=== PATIENT | female | born 1935 | race Caucasian/White ===

== ENCOUNTER 2016-12-11 00:42 | Emergency (ER) | payer MEDICARE, OTHER ==
[~2016-12-11] VITALS: Ht 160 cm; Wt 122.5 kg
[~2016-12-11 00:42] MED LIST: ACET325T9 PO; AMLO10TA2 PO; ASPI81TA2 PO; BISA10SU55 RC; CARV25TA PO; DICL100G7 TP; DOCU100C5 PO; DULO60CA6 PO; ERGO500012 PO; GABA-585 PO; HYDR-2762 PO; HYDR12.58 PO; LISI-334 PO; MELA1TAB13 PO; MELA3TAB PO; OMEG1CAP6 PO; ONDA4TAB7 PO; PANT40TA5 PO; POLY17PO5 PO; POTA10CA PO; SIMV5TAB5 PO
[2016-12-11 01:35] LABS: BILIRUBIN,URINE NEGATIVE (NEG); GLUCOSE,URINE NEGATIVE (NEG); NITRITE,URINE NEGATIVE (NEG); PH,URINE 7.5; PROTEIN,URINE NEGATIVE (NEG-TRACE)
[2016-12-11 01:39] LABS: BACTERIA,URINE MANY /HPF (0-FEW); RBC,URINE 0 /HPF (0-2); SQUAMOUS EPITHELIAL CELL,UR FEW /LPF
[2016-12-11 01:48] LABS: BASO % 1 % (0-3); EOS % 1 % (0-3); HEMOGLOBIN 10.7 g/dL (12.0-15.5); LYMPH # 1.3 x10^3/uL (1.0-4.8); LYMPH % 14 % (24-48); MEAN CORPUSCULAR HEMOGLOBIN 31 pg (25-35); MEAN CORPUSCULAR HGB CONC 33 g/dL (31-37); MEAN CORPUSCULAR VOLUME 96 fL (79-100); MONO % 6 % (0-9); NEUT % 78 % (31-73); PLATELET COUNT 180 x10^3/uL (140-400); RED BLOOD COUNT 3.45 x10^6/uL (3.50-5.40); RED CELL DISTRIBUTION WIDTH 13.2 % (11.5-14.5); WHITE BLOOD COUNT 9.3 x10^3/uL (4.0-11.0)
[2016-12-11 01:58] LABS: GFR 53.5
[2016-12-11 02:04] LABS: DIRECT BILIRUBIN 0.1 mg/dL (0.0-0.2); TOTAL BILIRUBIN 0.3 mg/dL (0.2-1.0); TOTAL PROTEIN 7.5 g/dL (6.4-8.2)
--- NOTE | 2016-12-11 02:59 | RAD ---
INDICATION: Head and neck trauma after a fall. COMPARISON: None TECHNIQUE: Axial, noncontrast CT images obtained through the head and cervical spine. Coronal and sagittal reformats are provided of the cervical spine. One or more of the following individualized dose reduction techniques were utilized for this examination: 1. Automated exposure control; 2. Adjustment of the mA and/or kV according to patient size; 3. Use of iterative reconstruction technique. FINDINGS: No acute intracranial process is identified, specifically no acute blood products, midline shift, mass effect or extra-axial fluid collections. Ventricles and sulci appear appropriate for patient's age. Basilar cisterns are maintained. Diffuse low attenuation is present within the periventricular and subcortical white matter. Intracranial vascular calcifications are present. The visualized paranasal sinuses are clear. Mastoid air cells are clear. No calvarial fracture is present. Scalp hematoma demonstrated at the vertex. There is linear lucency demonstrated within the anterior inferior aspect of the body of C2, best visualized on the coronal and sagittal images, consistent with an acute, traumatic, nondisplaced fracture. No significant involvement of the transverse processes is seen. Remainder of the cervical spine appears intact. The C1-C2 articulation is maintained. Normal cervical lordosis and alignment is maintained. The posterior elements are intact. Visualized soft tissues of the neck demonstrate no acute finding. Visualized lung apices are clear. Left thyroid hypodensity is present. IMPRESSION: 1. Vertex scalp hematoma without an underlying acute intracranial process. Diffuse periventricular and subcortical white matter low attenuation is nonspecific although suggestive of chronic microvascular ischemic changes. 2. Acute, nondisplaced fracture involving the inferior body of C2. This was discussed with Dr. Jose in the ER at 02:56 on 12/11/2016. Electronically signed by: Jayna Miner (Dec 11, 2016 02:58:11)
[2016-12-11] MEDS ORDERED: HYDROCODONE/APAP 5/325MG TABLET. PO ONE (03:00)
[2016-12-11] MEDS ORDERED: HYDR-2666 PO (03:14)
--- NOTE | 2016-12-11 03:15 | PHYS DOC ---
Past Medical History Past Medical History: Arthritis, Dementia, Depression, High Cholesterol, Hypertension Additional Past Medical Histor: DVT LEFT LEG Past Surgical History: No Surgical History Additional Past Surgical Histo: unknown Alcohol Use: None Drug Use: None Adult General Chief Complaint Chief Complaint: MECHANICAL FALL HPI HPI 81-year-old female presenting to the emergency Department today after falling at a local longterm. There are reports of head trauma. Patient has a small amount swelling just above left eyebrow. She reports no lost consciousness. She denies neck pain chest pain abdominal pain. She does have back pain along the thoracic paraspinal musculature. Her pain as sharp nonradiating mild to moderate and without alleviating factors. Review of Systems Review of Systems Review of Systems is negative for chest pain abdominal pain fevers chills. She denies injury to her extremities. All other systems is negative except noted in HPI. Current Medications Current Medications Current Medications Medications (Trade) Dose Ordered Sig/Rubén Start Time Stop Time Status Last Admin Dose Admin Acetaminophen/ Hydrocodone Bitart (Lortab 5/325) 2 tab 1X ONCE 12/11/16 03:00 12/11/16 03:01 DC 12/11/16 02:40 2 TAB Allergies Allergies Allergies Coded Allergies Type Severity Reaction Last Updated Verified cortisone Allergy Intermediate 12/26/15 No warfarin Allergy Intermediate 12/26/15 No I S O L A T I O N *CONTACT* Allergy Unknown 12/26/15 Yes Physical Exam Physical Exam Constitutional: Well developed, well nourished, no acute distress, non-toxic appearance. [] HENT: Normocephalic, small swelling just above left eye. Otherwise no lacerations present., bilateral external ears normal, oropharynx moist, no oral exudates, nose normal. [] Eyes: PERRLA, EOMI, conjunctiva normal, no discharge. [] Neck: Normal range of motion, no tenderness, supple, no stridor. [] Cardiovascular:Heart rate regular rhythm, no murmur [] Lungs & Thorax: Bilateral breath sounds clear to auscultation [] Abdomen: Bowel sounds normal, soft, no tenderness, no masses, no pulsatile masses. [] Skin: Warm, dry, no erythema, no rash. [] Back: No tenderness, no CVA tenderness. cervical lumbar and thoracic spinal examination shows no abrasions lacerations or ecchymosis. Step off present. No tenderness in the midline. There is mild pain along the paraspinal musculature. Extremities: No tenderness, no cyanosis, no clubbing, ROM intact, no edema. [] Neurologic: Alert and oriented X 3, normal motor function, normal sensory function, no focal deficits noted. [] Psychologic: Affect normal, judgement normal, mood normal. [] Current Patient Data Vital Signs Vital Signs Date Time Temp Pulse Resp B/P Pulse Ox O2 Delivery O2 Flow Rate FiO2 12/11/16 03:29 68 20 141/63 96 Nasal Cannula 2 12/11/16 01:10 98.6 98.6 Lab Values Laboratory Tests Test 12/11/16 01:29 12/11/16 01:40 Urine Collection Type Unknown Urine Color Yellow Urine Clarity Clear Urine pH 7.5 Urine Specific [place] 1.015 Urine Protein Negativemg/dL (NEG-TRACE) Urine Glucose (UA) Negativemg/dL (NEG) Urine Ketones (Stick) Negativemg/dL (NEG) Urine Blood Negative (NEG) Urine Nitrite Negative (NEG) Urine Bilirubin Negative (NEG) Urine Urobilinogen Dipstick 1.0mg/dL (0.2 mg/dL) Urine Leukocyte Esterase Moderate (NEG) Urine RBC 0/HPF (0-2) Urine WBC 5-10/HPF (0-4) Urine Squamous Epithelial Cells Few/LPF Urine Bacteria Many/HPF (0-FEW) Urine Mucus Slight/LPF White Blood Count 9.3x10^3/uL (4.0-11.0) Red Blood Count 3.45x10^6/uL (3.50-5.40) L Hemoglobin 10.7g/dL (12.0-15.5) L Hematocrit 33.0% (36.0-47.0) L Mean Corpuscular Volume 96fL (79-100) Mean Corpuscular Hemoglobin 31pg (25-35) Mean Corpuscular Hemoglobin Concent 33g/dL (31-37) Red Cell Distribution Width 13.2% (11.5-14.5) Platelet Count 180x10^3/uL (140-400) Neutrophils (%) (Auto) 78% (31-73) H Lymphocytes (%) (Auto) 14% (24-48) L Monocytes (%) (Auto) 6% (0-9) Eosinophils (%) (Auto) 1% (0-3) Basophils (%) (Auto) 1% (0-3) Neutrophils # (Auto) 7.3x10^3uL (1.8-7.7) Lymphocytes # (Auto) 1.3x10^3/uL (1.0-4.8) Monocytes # (Auto) 0.6x10^3/uL (0.0-1.1) Eosinophils # (Auto) 0.1x10^3/uL (0.0-0.7) Basophils # (Auto) 0.0x10^3/uL (0.0-0.2) Sodium Level 143mmol/L (136-145) Potassium Level 4.0mmol/L (3.5-5.1) Chloride Level 105mmol/L (98-107) Carbon Dioxide Level 33mmol/L (21-32) H Anion Gap 5 (6-14) L Blood Urea Nitrogen 20mg/dL (7-20) Creatinine 1.0mg/dL (0.6-1.0) Estimated GFR (Cockcroft-Gault) 53.5 Glucose Level 138mg/dL (70-99) H Lactic Acid Level 1.0mmol/L (0.4-2.0) Calcium Level 9.0mg/dL (8.5-10.1) Total Bilirubin 0.3mg/dL (0.2-1.0) Direct Bilirubin 0.1mg/dL (0.0-0.2) Aspartate Amino Transferase (AST) 13U/L (15-37) L Alanine Aminotransferase (ALT) 15U/L (14-59) Alkaline Phosphatase 107U/L (46-116) Troponin I Quantitative < 0.017ng/mL (0.000-0.055) XR-Unh-V-Type Natriuretic Peptide 496pg/mL (0-449) H Total Protein 7.5g/dL (6.4-8.2) Albumin 3.0g/dL (3.4-5.0) L Lipase 235U/L (73-393) Laboratory Tests 12/11/16 01:40 Laboratory Tests 12/11/16 01:40 EKG EKG [] Radiology/Procedures Radiology/Procedures [] Course & Med Decision Making Course & Med Decision Making Pertinent Labs and Imaging studies reviewed. (See chart for details) []81-year-old female presenting to the emergency Department today after fall with head trauma. Vital signs were unremarkable. Physical exam showed a mild swelling of the left eyebrow. head neck CT were remarkable for a nondisplaced cervical spine fracture at C2. I discussed the case with our spinal surgeon Dr. Mosley recommended [place] collar with outpatient follow-up in seven days. The patient was in placed in [place] collar and discharged back to her nursing facility for follow-up with spinal surgery in seven days. Dragon Disclaimer Dragon Disclaimer This electronic medical record was generated, in whole or in part, using a voice recognition dictation system. Departure Departure Impression: Primary Impression: Fracture of C2 vertebra, closed Disposition: 01 HOME, SELF-CARE Condition: STABLE Referrals: EMILIA ROBLES (PCP) Patient Instructions: Cervical Spine Fracture, Stable Additional Instructions: Thank you for allowing us to participate in your care today. Followup with Dr. Whitehead in 7 days. If you do not have a primary care provider you can ask for a list of our primary care providers. Return to the emergency department you have any new or concerning findings. This should be evaluated by the primary care physician and any necessary consulting services for continued management within a few days after discharge. Return to emergency room if you have any new or concerning symptoms including but not limited to fever, chills, nausea, vomiting, intractable pain, any new rashes, chest pain, shortness of air, uncontrolled bleeding, difficulty breathing, and/or vision loss. You may have been prescribed medication that can change in your level of thinking and ability to operate machinery. These medications include hydrocodone and Ativan. Also, Benadryl has been known to do this as well. Be sure to check with your pharmacist and ask if the medications you've prescribed can affect your level of consciousness. I recommend not operating heavy machinery or driving while on medication such as these. Scripts Hydrocodone Bit/Acetaminophen (Hydrocodone-Apap 5-325 )1 Each Tablet1 Tab PO PRN Q6HRS PRN PAIN #15 TAB Be careful as this medication may cause you to be drowsy or tired. Do not drive on this medication. Prov:LYUBOV BLUNT MD 12/11/16 LYUBOV BLUNT MD Dec 11, 2016 03:15
[2016-12-11 03:29] VITALS: BP 141/63
--- NOTE | 2016-12-11 06:14 | EKG ---
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
--- NOTE | 2016-12-11 08:07 | RAD ---
EXAM: Chest, single view. HISTORY: Fatigue. COMPARISON: 12/22/2015. FINDINGS: A frontal view of the chest is obtained. There is slight increased diffuse interstitial opacity suggesting mild congestion. There is no consolidation, effusion or pneumothorax. The heart is normal in size for portable technique. IMPRESSION: Slight interval increase in diffuse interstitial opacity suggesting congestion.
== END 2016-12-11 03:57 | disposition home or self-care (01) ==
LOC: ER 00:42
DX: S12.101A Unspecified nondisplaced fracture of second cervical vertebra, initial encounter for closed fracture (principal); M19.90 Unspecified osteoarthritis, unspecified site; E78.00 Pure hypercholesterolemia, unspecified; I10 Essential (primary) hypertension; Z88.8 Allergy status to other drugs, medicaments and biological substances; Z91.041 Radiographic dye allergy status; W19.XXXA Unspecified fall, initial encounter; Y93.89 Activity, other specified; Y92.89 Other specified places as the place of occurrence of the external cause; Y99.8 Other external cause status
CPT/HCPCS: 36415; 51701; 70450; 71010; 72125; 80048; 80076; 81001; 83605; 83690; 83880; 84484; 85027; 87086; 93005; 99285-25

== ENCOUNTER → 2016-12-13 | Outpatient (CLI) | payer MEDICARE, OTHER ==
[2016-12-11 03:29] VITALS: BP 141/63
[~2016-12-13] MED LIST changes: +HYDR-2666 PO
--- NOTE | 2016-12-13 10:16 | RAD ---
EXAM: Cervical spine, 4 views. HISTORY: C2 fracture. COMPARISON: CT dated 12/11/2016. FINDINGS: Frontal, lateral and swimmer's views of the cervical spine are obtained. There is straightening of cervical lordosis and minimal anterolisthesis at the upper cervical levels. There is facet arthropathy at all levels. The recently demonstrated nondisplaced fracture of the anterior inferior aspect of C2 is unchanged. There is an ectatic atherosclerotic aortic arch. IMPRESSION: 1. Nondisplaced fracture of the anterior-inferior aspect of C2, not significantly changed compared to the recent CT when allowing for differences in imaging modality. 2. Multilevel degenerative change throughout the cervical spine.
== END | disposition home or self-care (01) ==
LOC: RAD 09:13
PROVIDERS: ATTEND Family Medicine
DX: S12.100A Unspecified displaced fracture of second cervical vertebra, initial encounter for closed fracture (principal)
CPT/HCPCS: 72040

== ENCOUNTER → 2017-01-17 | Outpatient (CLI) | payer MEDICARE, OTHER ==
--- NOTE | 2017-01-17 16:39 | RAD ---
INDICATION: CERVICAL FRACTURE. COMPARISON: 12/11/2016 IMPRESSION: 6 views of the cervical spine are obtained. There is a mildly displaced fracture at the anterior inferior aspect of the C2 vertebral body with angulation of the fracture. This appears more displaced compared to prior examination. Degenerative changes are seen throughout the cervical spine with osteophyte formation at the disc spaces as well as uncovertebral and facet hypertrophy. Severe calcific atherosclerosis of partially visualized thoracic aorta. Report called to the ordering clinicians office at 4:34 PM on date of exam.
== END | disposition home or self-care (01) ==
LOC: RAD 15:39
PROVIDERS: ATTEND Neurological Surgery
DX: S12.100A Unspecified displaced fracture of second cervical vertebra, initial encounter for closed fracture (principal); M25.78 Osteophyte, vertebrae; X58.XXXA Exposure to other specified factors, initial encounter; Y99.8 Other external cause status; Y92.89 Other specified places as the place of occurrence of the external cause; Y93.89 Activity, other specified
CPT/HCPCS: 72040

== ENCOUNTER 2017-08-29 14:36 | Inpatient (IN) | payer MEDICARE, OTHER ==
[~2017-08-29] VITALS: Ht 165.1 cm; Wt 88.0 kg
[~2017-08-29 14:36] MED LIST changes: +AMLO2.5T PO; +ASPI-630 PO; -ASPI81TA2 PO; +CARV6.25 PO; +CETI10TA22 PO; +DICL100G18 TP; -DICL100G7 TP; +DOCU100C28 PO; -DOCU100C5 PO; -ERGO500012 PO; +ERGO500027 PO; +FENT1PAT13 TP; +FURO-68 PO; +GLYC1SUP RC; -HYDR-2666 PO; +HYDR-2758 PO; +LEVO75TA5 PO; +LISI-338 PO; +MELA10TA2 PO; -MELA3TAB PO; +MELA3TAB2 PO; +MICO130A9 TP; +NA P133E2 RC; +NYST15CR TP; +OMEP20TA8 PO; +POLY17PO29 PO; -POLY17PO5 PO; -POTA10CA PO; +POTASSIUM CHLO10 MEQ PO
--- NOTE | 2017-08-29 14:52 | EKG ---
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
--- NOTE | 2017-08-29 15:22 | RAD ---
EXAM: Chest one view. HISTORY: Chest pain. COMPARISON: Studies dating back through 11/23/2015. FINDINGS: A frontal view of the chest is obtained. The inspiration is small with mild basilar atelectasis. An opacity along the right superior sternal border appears to been stable chronically and likely reflects tortuous vasculature. There are atherosclerotic calcifications of the aorta. There is no pneumothorax or pleural effusion. The heart is mildly enlarged. The aorta is calcified and tortuous. 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 IMPRESSION: 1. Mild cardiomegaly. 2. Enlargement of the right peritracheal stripe most likely represents tortuous vasculature and has been present chronically.
--- NOTE | 2017-08-29 15:25 | PHYS DOC ---
Past Medical History Past Medical History: Arthritis, Dementia, Depression, High Cholesterol, Hypertension Additional Past Medical Histor: DVT LEFT LEG Past Surgical History: No Surgical History Additional Past Surgical Histo: unknown Alcohol Use: None Drug Use: None Adult General Chief Complaint Chief Complaint: CHEST PAIN HPI HPI Patient is a 81 year old female who presents with substernal chest pain. She states it started prior to arrival. He states it was a sharp pain at substernal didn't radiate she denies any nausea or vomiting. She does have a history of a stress test recently that shows some signs of questionable ischemia. Review of Systems Review of Systems Constitutional: Denies fever or chills [] Eyes: Denies change in visual acuity, redness, or eye pain [] HENT: Denies nasal congestion or sore throat [] Respiratory: Denies cough or shortness of breath [] Cardiovascular: No additional information not addressed in HPI [] GI: Denies abdominal pain, nausea, vomiting, bloody stools or diarrhea [] : Denies dysuria or hematuria [] Musculoskeletal: Denies back pain or joint pain [] Integument: Denies rash or skin lesions [] Neurologic: Denies headache, focal weakness or sensory changes [] Endocrine: Denies polyuria or polydipsia [] Current Medications Current Medications Current Medications Medications (Trade) Dose Ordered Sig/Rubén Start Time Stop Time Status Last Admin Dose Admin Aspirin (Ruth Aspirin) 325 mg 1X ONCE 08/29/17 17:30 08/29/17 17:31 Allergies Allergies Allergies Coded Allergies Type Severity Reaction Last Updated Verified cortisone Allergy Intermediate 12/26/15 No warfarin Allergy Intermediate 12/26/15 No I S O L A T I O N *CONTACT* Allergy Unknown 12/26/15 Yes Physical Exam Physical Exam Constitutional: Well developed, well nourished, no acute distress, non-toxic appearance. [] HENT: Normocephalic, atraumatic, bilateral external ears normal, oropharynx moist, no oral exudates, nose normal. [] Eyes: PERRLA, EOMI, conjunctiva normal, no discharge. [] Neck: Normal range of motion, no tenderness, supple, no stridor. [] Cardiovascular:Heart rate regular rhythm, no murmur [] Lungs & Thorax: Bilateral breath sounds clear to auscultation [] Abdomen: Bowel sounds normal, soft, no tenderness, no masses, no pulsatile masses. [] Skin: Warm, dry, no erythema, no rash. [] Back: No tenderness, no CVA tenderness. [] Extremities: No tenderness, no cyanosis, no clubbing, ROM intact, no edema. [] Neurologic: Alert and oriented X 3, normal motor function, normal sensory function, no focal deficits noted. [] Psychologic: Affect normal, judgement normal, mood normal. [] Current Patient Data Vital Signs Vital Signs Date Time Temp Pulse Resp B/P (MAP) Pulse Ox O2 Delivery O2 Flow Rate FiO2 08/29/17 14:36 98.7 74 16 111/61 (78) 99 Nasal Cannula 3.0 98.7 Lab Values Laboratory Tests Test 08/29/17 15:50 White Blood Count 9.2 x10^3/uL (4.0-11.0) Red Blood Count 3.69 x10^6/uL (3.50-5.40) Hemoglobin 11.5 g/dL (12.0-15.5) L Hematocrit 35.4 % (36.0-47.0) L Mean Corpuscular Volume 96 fL (79-100) Mean Corpuscular Hemoglobin 31 pg (25-35) Mean Corpuscular Hemoglobin Concent 33 g/dL (31-37) Red Cell Distribution Width 14.6 % (11.5-14.5) H Platelet Count 204 x10^3/uL (140-400) Neutrophils (%) (Auto) 65 % (31-73) Lymphocytes (%) (Auto) 25 % (24-48) Monocytes (%) (Auto) 7 % (0-9) Eosinophils (%) (Auto) 2 % (0-3) Basophils (%) (Auto) 1 % (0-3) Neutrophils # (Auto) 6.0 x10^3uL (1.8-7.7) Lymphocytes # (Auto) 2.3 x10^3/uL (1.0-4.8) Monocytes # (Auto) 0.7 x10^3/uL (0.0-1.1) Eosinophils # (Auto) 0.2 x10^3/uL (0.0-0.7) Basophils # (Auto) 0.1 x10^3/uL (0.0-0.2) Prothrombin Time 13.4 SEC (11.7-14.0) Prothrombin Time INR 1.1 (0.8-1.1) Sodium Level 141 mmol/L (136-145) Potassium Level 4.6 mmol/L (3.5-5.1) Chloride Level 103 mmol/L (98-107) Carbon Dioxide Level 34 mmol/L (21-32) H Anion Gap 4 (6-14) L Blood Urea Nitrogen 14 mg/dL (7-20) Creatinine 0.9 mg/dL (0.6-1.0) Estimated GFR (Cockcroft-Gault) 60.4 Glucose Level 103 mg/dL (70-99) H Calcium Level 8.8 mg/dL (8.5-10.1) Magnesium Level 2.2 mg/dL (1.8-2.4) Total Bilirubin 0.3 mg/dL (0.2-1.0) Direct Bilirubin 0.1 mg/dL (0.0-0.2) Aspartate Amino Transferase (AST) 13 U/L (15-37) L Alanine Aminotransferase (ALT) 15 U/L (14-59) Alkaline Phosphatase 114 U/L (46-116) Creatine Kinase 70 U/L (26-192) Creatine Kinase MB (Mass) 0.7 ng/mL (0.0-3.6) Creatine Kinase MB Relative Index 1.0 % (0-4) Troponin I Quantitative < 0.017 ng/mL (0.000-0.055) PK-Kxf-N-Type Natriuretic Peptide 953 pg/mL (0-449) H Total Protein 6.9 g/dL (6.4-8.2) Albumin 3.1 g/dL (3.4-5.0) L Lipase 238 U/L (73-393) Laboratory Tests 08/29/17 15:50 Laboratory Tests 08/29/17 15:50 EKG EKG EKG shows heart rate sinus [address] elevations, T-wave inversions noted in lead 3, left axis deviation noted, QTC 457 ms, as interpreted by me. EKG is unchanged from one performed July 31, 2017 Radiology/Procedures Radiology/Procedures [facility] [address] [place], [place] [id number] IMAGING REPORT Signed PATIENT: NELIDA CARRILLO ACCOUNT: [id number] : 1935 LOCATION: ER AGE: 81 SEX: F EXAM STATUS: PRE ER ORD. PHYSICIAN: LEANNA SILVA MD REASON: chest pain PROCEDURE: PORTABLE CHEST 1V EXAM: Chest one view. HISTORY: Chest pain. COMPARISON: Studies dating back through 11/23/2015. FINDINGS: A frontal view of the chest is obtained. The inspiration is small with mild basilar atelectasis. An opacity along the right superior sternal border appears to been stable chronically and likely reflects tortuous vasculature. There are atherosclerotic calcifications of the aorta. There is no pneumothorax or pleural effusion. The heart is mildly enlarged. The aorta is calcified and tortuous. 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 IMPRESSION: 1. Mild cardiomegaly. 2. Enlargement of the right peritracheal stripe most likely represents tortuous vasculature and has been present chronically. DICTATED and SIGNED BY: SHIRLENE MAGALLON MD DATE: 08/29/17 1516 CC: EMILIA ROBLES; LEANNA SILVA MD ~ Impressions: Chest pain Dementia Depression dyslipidemia Hypertension Course & Med Decision Making Course & Med Decision Making Pertinent Labs and Imaging studies reviewed. (See chart for details) His EKG isn't changed from previous. Labs also nonacute. Patient received 325 aspirin is being admitted to Dr. Jaramillo, who once a cardiology consultation. She did have a recent stress test that showed she had transient ischemic dilation, balance ischemia and they would like to do a catheter once she results from her orbital trauma she had recently. Dragon Disclaimer Dragon Disclaimer This electronic medical record was generated, in whole or in part, using a voice recognition dictation system. Departure Departure Impression: Primary Impression: Chest pain Disposition: ADMITTED INPATIENT Admitting Physician: Kyle Jaramillo Condition: STABLE Referrals: EMILIA ROBLES (PCP) Problem Qualifiers Primary Impression: Chest pain Chest pain type: unspecified Qualified Codes: R07.9 - Chest pain, unspecified LEANNA SILVA MD Aug 29, 2017 15:25
[2017-08-29 15:56] LABS: BASO # 0.1 x10^3/uL (0.0-0.2); BASO % 1 % (0-3); EOS % 2 % (0-3); HEMATOCRIT 35.4 % (36.0-47.0); HEMOGLOBIN 11.5 g/dL (12.0-15.5); LYMPH # 2.3 x10^3/uL (1.0-4.8); LYMPH % 25 % (24-48); MEAN CORPUSCULAR HEMOGLOBIN 31 pg (25-35); MEAN CORPUSCULAR HGB CONC 33 g/dL (31-37); MEAN CORPUSCULAR VOLUME 96 fL (79-100); MONO % 7 % (0-9); NEUT % 65 % (31-73); PLATELET COUNT 204 x10^3/uL (140-400); RED BLOOD COUNT 3.69 x10^6/uL (3.50-5.40); RED CELL DISTRIBUTION WIDTH 14.6 % (11.5-14.5); WHITE BLOOD COUNT 9.2 x10^3/uL (4.0-11.0)
[2017-08-29 16:07] LABS: INR 1.1 (0.8-1.1); PROTHROMBIN TIME PATIENT 13.4 SEC (11.7-14.0)
[2017-08-29 16:14] LABS: CALCIUM 8.8 mg/dL (8.5-10.1); CREATININE 0.9 mg/dL (0.6-1.0); GFR 60.4; POTASSIUM 4.6 mmol/L (3.5-5.1)
[2017-08-29 16:23] LABS: ALBUMIN 3.1 g/dL (3.4-5.0); DIRECT BILIRUBIN 0.1 mg/dL (0.0-0.2); MAGNESIUM 2.2 mg/dL (1.8-2.4); TOTAL BILIRUBIN 0.3 mg/dL (0.2-1.0); TOTAL PROTEIN 6.9 g/dL (6.4-8.2)
[2017-08-29 16:34] LABS: CKMB MASS 0.7 ng/mL (0.0-3.6)
[2017-08-29 17:25] LABS: BILIRUBIN,URINE NEGATIVE (NEG); GLUCOSE,URINE NEGATIVE (NEG); NITRITE,URINE NEGATIVE (NEG); PROTEIN,URINE NEGATIVE (NEG-TRACE)
[2017-08-29] MEDS ORDERED: ONDANSETRON PF 4 MG/2 ML VIAL. IV PRN (17:30)
[2017-08-29] MEDS ORDERED: ASPIRIN 325 MG TABLET PO ONE (17:30)
[2017-08-29 17:31] LABS: BARBITURATES NEG (NEG); BENZODIAZEPINES NEG (NEG); CANNABINOIDS NEG (NEG); COCAINE NEG (NEG); METHADONE NEG (NEG); OPIATES NEG (NEG); PHENCYCLIDINE NEG (NEG)
[2017-08-29 17:35] LABS: NEG OBC FOB NEG; POS OBC FOB POS
[2017-08-29 17:40] LABS: BACTERIA,URINE MANY /HPF (0-FEW); RBC,URINE 0 /HPF (0-2)
[2017-08-29 23:05] VITALS: BP 119/54
[2017-08-29] MEDS ORDERED: FERR-26 PO (23:43)
[2017-08-29] MEDS ORDERED: MAGN400O7 PO (23:43)
[2017-08-29] MEDS ORDERED: ERGO500027 PO (23:43)
[2017-08-29] MEDS ORDERED: PANT40TA5 PO (23:43)
[2017-08-30] VITALS (7 sets, daily range): BP systolic 91–139; BP diastolic 35–65
[2017-08-30] MEDS ORDERED: INFLUENZA VAX SCREEN BY RX. MC ONE (00:45)
[2017-08-30] MEDS ORDERED: PNEUMOCOCCAL VAX SCREEN BY RX. MC ONE (00:45)
[2017-08-30 05:46] LABS: BASO # 0.1 x10^3/uL (0.0-0.2); BASO % 1 % (0-3); EOS % 2 % (0-3); HEMATOCRIT 32.7 % (36.0-47.0); LYMPH # 2.7 x10^3/uL (1.0-4.8); LYMPH % 34 % (24-48); MEAN CORPUSCULAR HEMOGLOBIN 32 pg (25-35); MEAN CORPUSCULAR HGB CONC 34 g/dL (31-37); MEAN CORPUSCULAR VOLUME 94 fL (79-100); MONO % 7 % (0-9); NEUT % 56 % (31-73); PLATELET COUNT 190 x10^3/uL (140-400); RED BLOOD COUNT 3.49 x10^6/uL (3.50-5.40); RED CELL DISTRIBUTION WIDTH 14.3 % (11.5-14.5); WHITE BLOOD COUNT 7.9 x10^3/uL (4.0-11.0)
[2017-08-30 06:06] LABS: CALCIUM 8.8 mg/dL (8.5-10.1); CREATININE 0.9 mg/dL (0.6-1.0); GFR 60.4; POTASSIUM 3.9 mmol/L (3.5-5.1)
[2017-08-30] MEDS ORDERED: FLU VACC QS2017-18 (36MOS+)/PF 0.5 ML SYRINGE. VAX IM ONE (09:00)
--- NOTE | 2017-08-30 09:12 | CONS ---
DATE OF CONSULTATION: 08/30/2017 REASON FOR CONSULTATION: Chest discomfort. HISTORY OF PRESENT ILLNESS: The patient is a demented 81-year-old woman who has a past medical history consistent with diastolic heart failure and hypertension who presented to the ER with chest discomfort. She is a very poor historian who resides in a correction and apparently had some chest discomfort yesterday, which prompted a referral to the ER. In the Emergency Department, she did not have any significant acute pathology on laboratory testing, but was admitted due to a previously performed stress test, which was notable for possible transient ischemic dilatation. Of note, the patient was admitted approximately 1 month ago in the setting of a fall and was noted to have an elevated troponin and she underwent a myocardial perfusion imaging study, which revealed normal perfusion, but was noted to have transient ischemic dilatation suggestive of bowel ischemia and therefore at that time, we had discussed possible cardiac catheterization, but because of her fall and hemorrhage to her right eye, this was deferred as the patient was not having any chest pain in which we elected to treat her medically. Unfortunately, she returned to the hospital prior to seeing us in follow up in clinic and has been admitted again. At this present time, the patient denies any chest pain, but at the correction, she is mostly bed bound and is not active. PAST MEDICAL HISTORY: 1. Hypertension. 2. Dyslipidemia. 3. CVA. 4. Dementia with delusions. 5. Prior history of left lower extremity DVT. 6. Non-ST elevation myocardial infarction in the setting of a fall recently. 7. Chronic renal insufficiency, stage II. SURGICAL HISTORY: Tonsillectomy. FAMILY HISTORY: Noncontributory. SOCIAL HISTORY: No alcohol, tobacco or illicit drug use. She lives in a correction. CURRENT CARDIOVASCULAR MEDICATIONS: None as an in-patient. HOME MEDICATIONS: Include amlodipine, aspirin, carvedilol, lisinopril and simvastatin. REVIEW OF SYSTEMS: Unobtainable due to patient's dementia. ALLERGIES: CORTISONE AND WARFARIN. PHYSICAL EXAMINATION: VITAL SIGNS: Afebrile, 79, 17, 122/53, 99% on 3 liters nasal cannula. GENERAL: She is alert to self, but not oriented to time or place. HEAD AND NECK: Unremarkable. HEART: Regular rate and rhythm without any murmurs, rubs or gallops. LUNGS: Clear to auscultation with decreased breath sounds at the bases. ABDOMEN: Soft and nontender without any significant masses felt. EXTREMITIES: No clubbing, cyanosis or edema. MUSCULOSKELETAL: No obvious trauma, but poor strength bilaterally that is symmetric. DIAGNOSTIC STUDIES: INR 1.1, creatinine 0.9, cardiac enzymes negative x 3, hemoglobin 11.0 and stable, platelets 190. Chest x-ray is unremarkable except for mild cardiomegaly. Nuclear perfusion study performed 4 weeks ago reveals a normal perfusion with transient ischemic dilatation and preserved ejection fraction. IMPRESSION: 1. Abnormal stress test with admission of recurrent chest pain in the setting of previous non-ST elevation myocardial infarction. 2. Hypertension. 3. Dyslipidemia. 4. Chronic diastolic heart failure. 5. Dementia. RECOMMENDATIONS: We will confirm with the patient's family her wishes to pursue aggressive testing and if confirmed, we will then perform a cardiac catheterization to rule out any cardiac issues as a source of her chest pain. If the family wishes her to be treated more conservatively, then we could start the patient on low dose long-acting nitrate therapy and reevaluate her on outpatient basis. Thank you for this consultation. COLLIN UNGER MD DR: AALIYAH/izabel JOB#: [id number] / [id number]
[2017-08-30] MEDS: ASPIRIN ENTERIC COATED 81 MG TABLET.DR. PO SCH (09:30)
[2017-08-30] MEDS: amLODIPine BESYLATE 2.5 MG TABLET PO SCH (09:30)
[2017-08-30] MEDS: CARVEDILOL 6.25 MG TABLET. PO SCH ×2 (09:30→16:58)
--- NOTE | 2017-08-30 11:26 | PDOC ---
Provider Note Provider Note Pt seen.H&P dictated. #[id number] DAISY AMBROSE MD Aug 30, 2017 11:26
[2017-08-30] MEDS ORDERED: MAGNESIUM HYDROXIDE 2,400 MG/30 ML ORAL.SUSP. PO PRN (11:30)
[2017-08-30] MEDS ORDERED: HYDROcodone/APAP 7.5/325MG 1 TAB TABLET PO PRN (11:30)
[2017-08-30] MEDS ORDERED: ACETAMINOPHEN 325 MG TABLET. PO PRN (11:30)
--- NOTE | 2017-08-30 11:44 | HP ---
ADMIT DATE: 08/29/2017 PATIENT LOCATION: 258. REASON FOR ADMISSION TO THE HOSPITAL: Chest pain. HISTORY OF PRESENT ILLNESS: The patient is a 81-year-old female, patient from half-way [place] and she was in the hospital 4 weeks ago. At that time, the patient had a mechanical fall, had a bleeding into the right eye, eyeball and eyelid and also elevated troponin, was seen by Cardiology at that time. Her ejection fraction was normal. Echo stress test was positive for mild ischemia. It was decided because of the bleeding not to do any cardiac catheterization at that time. If symptoms happen, then would do a cardiac catheterization. The patient came with chest pain to the hospital. Cardiac enzymes and EKG were negative for acute myocardial infarction, was admitted to the hospital, seen by Cardiology, scheduled for cardiac catheterization on Friday. 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 PAST SURGICAL HISTORY: Tonsillectomy. ALLERGIES: COUMADIN. FAMILY HISTORY: Unremarkable. SOCIAL HISTORY: Lives at half-way, very minimally ambulating. REVIEW OF SYSTEMS: The patient is sleeping at this time, easily awakable and denies any chest pain or shortness of breath at this time and goes back to sleep. PHYSICAL EXAMINATION: GENERAL: The patient is not in any distress. VITAL SIGNS: Temperature 98, pulse 74, respirations 16, blood pressure 111/61, 99% on 3 liters. HEENT: Head is atraumatic. Pupils equal. Oral cavity: No congestion. NECK: Supple. Thyroid not enlarged. JVD not elevated. CHEST: Symmetrical. CARDIOVASCULAR: S1, S2. LUNGS: Clear to auscultation. ABDOMEN: Soft. No mass palpable. EXTERNAL GENITALIA: No Slater. RECTAL: Deferred. EXTREMITIES: Arthritis in the knees. LABORATORY DATA: Shows white count is 9, hemoglobin 11.5, platelets 204. Electrolytes show sodium 141, potassium 4.6, chloride 103, bicarbonate 34, BUN 14, creatinine 0.9, glucose 103, magnesium 2.2. LFTs were normal. Troponin was negative. INR is 1.1. Urine, leukocyte esterase small, 1-4 wbc's. Stool occult blood was positive. Chest x-ray: Mild cardiomegaly, otherwise no acute infiltrates. EKG: Sinus rhythm, right bundle branch block. FINAL IMPRESSION: 1. Chest pains. 2. The patient had a positive stress test for questionable reversible ischemia 4 weeks ago. 3. Hypertension. 4. Previous strokes. 5. Dementia. 6. History of gastrointestinal bleeding on anticoagulants. PLAN: At this time, was admitted to the hospital, seen by Cardiology, tentatively scheduled for a cardiac catheterization for Friday and see how the patient's condition improves. DAISY AMBROSE MD DR: TANA/izabel JOB#: [id number] / [id number] rAtur Ochoa MD
[2017-08-30] MEDS ORDERED: ONDANSETRON ODT 4 MG TAB.RAPDIS. PO PRN (11:45)
[2017-08-30] MEDS: LISINOPRIL 5 MG TABLET. PO SCH (12:00)
[2017-08-30] MEDS: FERROUS SULFATE 325 MG TABLET. PO SCH ×2 (12:00→16:59)
[2017-08-30] MEDS: POTASSIUM CHLORIDE 10 MEQ TABLET.ER. PO SCH ×2 (12:00→16:59)
[2017-08-30] MEDS ORDERED: ENOXAPARIN 40 MG/0.4 ML SYRINGE. SQ ONE (12:00)
[2017-08-30] MEDS ORDERED: ASPIRIN CHEWABLE 81 MG TABLET. PO SCH (12:00)
[2017-08-30] MEDS: CETIRIZINE HCL 10 MG TABLET. PO SCH (12:00)
[2017-08-30] MEDS: POLYETHYLENE GLYCOL 3350 17 GM PACKET. PO SCH (12:00)
[2017-08-30] MEDS: LEVOTHYROXINE 75 MCG TABLET PO SCH (12:00)
[2017-08-30] MEDS: DICLOFENAC SODIUM 1% TOPICAL GEL 100GM TUBE. TP SCH ×2 (12:00→20:52)
[2017-08-30] MEDS: PANTOPRAZOLE 40 MG TABLET.DR. PO SCH (12:00)
[2017-08-30] MEDS ORDERED: CARVEDILOL 6.25 MG TABLET. PO SCH (12:00)
[2017-08-30] MEDS: DULoxetine HCL 30 MG CAPSULE.DR PO SCH (12:00)
[2017-08-30] MEDS ORDERED: fentaNYL 12MCG/HR PATCH 1 PATCH PATCH.TD72 TD SCH (12:00)
[2017-08-30] MEDS: SIMVASTATIN 10 MG TABLET PO SCH (20:45)
[2017-08-30] MEDS ORDERED: SIMVASTATIN 5 MG TABLET. PO SCH (21:00)
[2017-08-31 03:30] VITALS: BP 134/52
[2017-08-31 06:31] LABS: CHOLESTEROL/HDL RATIO 5.2
[2017-08-31 07:06] VITALS: BP 126/54
[2017-08-31] MEDS: LISINOPRIL 5 MG TABLET. PO SCH (07:47)
[2017-08-31] MEDS: PANTOPRAZOLE 40 MG TABLET.DR. PO SCH (07:48)
[2017-08-31] MEDS: ISOSORBIDE MONONITRATE ER 30 MG TAB.ER.24H PO SCH (07:48)
[2017-08-31] MEDS: CARVEDILOL 6.25 MG TABLET. PO SCH ×2 (07:48→17:43)
[2017-08-31] MEDS: POTASSIUM CHLORIDE 10 MEQ TABLET.ER. PO SCH ×2 (07:48→17:42)
[2017-08-31] MEDS: DULoxetine HCL 30 MG CAPSULE.DR PO SCH (07:49)
[2017-08-31] MEDS: POLYETHYLENE GLYCOL 3350 17 GM PACKET. PO SCH (07:49)
[2017-08-31] MEDS: LEVOTHYROXINE 75 MCG TABLET PO SCH (07:49)
[2017-08-31] MEDS: amLODIPine BESYLATE 2.5 MG TABLET PO SCH (07:49)
[2017-08-31] MEDS: ASPIRIN ENTERIC COATED 81 MG TABLET.DR. PO SCH (07:49)
[2017-08-31] MEDS: FERROUS SULFATE 325 MG TABLET. PO SCH ×2 (07:49→17:42)
[2017-08-31] MEDS: CETIRIZINE HCL 10 MG TABLET. PO SCH (07:49)
[2017-08-31] MEDS: DICLOFENAC SODIUM 1% TOPICAL GEL 100GM TUBE. TP SCH ×2 (07:51→21:00)
[2017-08-31] MEDS ORDERED: amLODIPine BESYLATE 2.5 MG TABLET PO SCH (09:00)
[2017-08-31 11:00] VITALS: BP 97/50
--- NOTE | 2017-08-31 11:26 | PDOC ---
PROGRESS NOTES Subjective Subjective awake and answers questions today Objective Objective Vital Signs Date Time Temp Pulse Resp B/P (MAP) Pulse Ox O2 Delivery O2 Flow Rate FiO2 08/31/17 08:17 Nasal Cannula 3.0 08/31/17 07:49 81 126/54 08/31/17 07:06 98.7 17 97 98.7 Physical Exam Abdomen: Normal bowel sounds, Soft Heart: Regular rate, Normal S1, Normal S2 General: Cooperative, No acute distress Lungs: Clear to auscultation MUSCULOSKELETAL: No swelling, Osteoarthritic changes both hands Neuro: Normal speech Psych/Mental Status: Mood NL Skin: No breakdown Diagnosis Problem List Problems Medical Problems: (1) Chest pain Status: Acute Assessment Assessment Problems Medical Problems: (1) Chest pain Status: Acute FINAL IMPRESSION: 1. Chest pains no [place] ,CAD stable angina 2. The patient had a positive stress test for questionable reversible ischemia 4 weeks ago. 3. Hypertension. 4. Previous strokes. 5. Dementia. 6. History of gastrointestinal bleeding on anticoagulants. PLAN: pt do not want cardiac cath. medical treatment with [facility] spoke with cardiology d/c back to [place] today uti ,gram neg 100,000,start on vantin Problems: Plan Plan of Care Problems Medical Problems: (1) Chest pain Status: Acute Comment Review of Relevant I have reviewed the following items georges (where applicable) has been applied. Labs Laboratory Tests Test 08/31/17 05:40 Triglycerides Level 132 mg/dL (0-150) Cholesterol Level 172 mg/dL (0-200) LDL Cholesterol, Calculated 113 mg/dL (0-100) VLDL Cholesterol, Calculated 26 mg/dL (0-40) Non-HDL Cholesterol Calculated 139 mg/dL (0-129) HDL Cholesterol 33 mg/dL (40-60) Cholesterol/HDL Ratio 5.2 Thyroid Stimulating Hormone (TSH) 1.286 uIU/mL (0.358-3.74) Microbiology 08/29/17 Urine Culture - Preliminary, Resulted 08/29/17 Urine Culture Result 1 (APARNA) - Preliminary, Resulted Medications Current Medications Acetaminophen (Tylenol) 650 mg PRN Q6HRS PRN PO MILD PAIN / TEMP; Start at 11:30 Acetaminophen/ Hydrocodone Bitart (Lortab 7.5/325) 1 tab PRN BID PRN PO PAIN; Start 08/30/17 at 11:30 Amlodipine Besylate (Norvasc) 2.5 mg DAILY PO ; Start 08/31/17 at 09:00; Status UNV Aspirin (Children'S Aspirin) 81 mg DAILY PO ; Start 08/30/17 at 12:00; Status UNV Carvedilol (Coreg) 6.25 mg BIDWMEALS PO ; Start 08/30/17 at 12:00; Status UNV Cetirizine HCl (ZyrTEC) 10 mg DAILY PO Last administered on 08/31/17 07:49; Start 08/30/17 at 12:00 Diclofenac Sodium (Voltaren) 100 jade BID TP Last administered on 08/31/17 07: 51; Start 08/30/17 at 12:00 Duloxetine HCl (Cymbalta) 60 mg DAILY PO Last administered on 08/31/17 07:49; Start 08/30/17 at 12:00 Enoxaparin Sodium (Lovenox 40mg Syringe) 40 mg 1X ONCE SQ ; Start 08/30/17 at 12:00; Stop 08/30/17 at 12:01; Status DC Ergocalciferol (Vitamin D2) 50,000 unit WEEKLY PO ; Start 09/06/17 at 09:00 Fentanyl (Duragesic 12mcg/ Hr Patch) 1 patch Q3DAYS TD ; Start 08/30/17 at 12:00 Ferrous Sulfate (Feosol) 325 mg BIDWMEALS PO Last administered on 08/31/17 07: 49; Start 08/30/17 at 12:00 Isosorbide Mononitrate (Imdur) 30 mg DAILY PO Last administered on 08/31/17 07 :48; Start 08/31/17 at 09:00 Levothyroxine Sodium (Synthroid) 75 mcg DAILYAC PO Last administered on 07:49; Start 08/30/17 at 12:00 Lisinopril (Prinivil) 5 mg DAILY PO Last administered on 08/31/17 07:47; Start 08/30/17 at 12:00 Magnesium Hydroxide (Milk Of Magnesia) 400 mg PRN DAILY PRN PO CONSTIPATION; Start 08/30/17 at 11:30 Ondansetron HCl (Zofran Odt) 4 mg PRN Q8HRS PRN PO NAUSEA/VOMITING; Start 08/30 at 11:45 Pantoprazole Sodium (Protonix) 40 mg DAILYAC PO Last administered on 08/31/17 07:48; Start 08/30/17 at 12:00 Polyethylene Glycol (miraLAX PACKET) 17 gm DAILY PO Last administered on 07:49; Start 08/30/17 at 12:00 Potassium Chloride (Klor-Con) 10 meq BIDWMEALS PO Last administered on 07:48; Start 08/30/17 at 12:00 Simvastatin (Zocor) 5 mg QHS PO ; Start 08/30/17 at 21:00; Status Cancel Simvastatin (Zocor) 10 mg QHS PO Last administered on 08/30/17 20:45; Start at 21:00 Vitals/I & O Vital Sign - Last 24 Hours 08/30/17 08/30/17 08/30/17 08/30/17 12:00 12:00 15:23 19:00 Temp 98.5 99.2 98.5 99.2 Pulse 79 75 79 Resp B/P (MAP) 110/52 139/63 (88) 116/65 (82) Pulse Ox 98 99 99 O2 Delivery Nasal Cannula Nasal Cannula Nasal Cannula O2 Flow Rate 3.0 3.0 3.0 08/30/17 08/30/17 08/31/17 08/31/17 20:00 23:18 03:30 07:06 Temp 98.9 98.5 98.7 98.9 98.5 98.7 Pulse 80 78 81 Resp 17 B/P (MAP) 111/47 (68) 134/52 (79) 126/54 (78) Pulse Ox 98 96 97 O2 Delivery Nasal Cannula Nasal Cannula Nasal Cannula Nasal Cannula O2 Flow Rate 3.0 3.0 3.0 3.0 08/31/17 08/31/17 08/31/17 08/31/17 07:47 07:48 07:48 07:49 Pulse 81 81 81 81 B/P (MAP) 126/54 126/54 126/54 126/54 08/31/17 08:17 O2 Delivery Nasal Cannula O2 Flow Rate 3.0 DAISY AMBROSE MD Aug 31, 2017 11:26
[2017-08-31] MEDS: CEFPODOXIME PROXETIL 100 MG TABLET. PO SCH ×2 (12:36→21:29)
[2017-08-31 15:00] VITALS: BP 95/46
[2017-08-31 19:00] VITALS: BP 105/53
[2017-08-31] MEDS: SIMVASTATIN 10 MG TABLET PO SCH (21:29)
[2017-08-31 23:00] VITALS: BP 113/53
[2017-09-01 03:00] VITALS: BP 118/48
[2017-09-01 07:40] VITALS: BP 128/60
[2017-09-01] MEDS: CARVEDILOL 6.25 MG TABLET. PO SCH ×2 (08:00→17:37)
[2017-09-01] MEDS: POLYETHYLENE GLYCOL 3350 17 GM PACKET. PO SCH (09:00)
--- NOTE | 2017-09-01 10:20 | PDOC ---
PROGRESS NOTES Subjective Subjective no complaints Objective Objective Vital Signs Date Time Temp Pulse Resp B/P (MAP) Pulse Ox O2 Delivery O2 Flow Rate FiO2 09/01/17 07:40 98.0 79 18 128/60 (82) 98 Nasal Cannula 3.0 98.0 Physical Exam Abdomen: Normal bowel sounds, Soft Heart: Regular rate, Normal S1, Normal S2 General: Cooperative, No acute distress Lungs: Clear to auscultation MUSCULOSKELETAL: No swelling, Osteoarthritic changes both hands Neuro: Normal speech Psych/Mental Status: Mood NL Skin: No breakdown Diagnosis Problem List Problems Medical Problems: (1) Chest pain Status: Acute Assessment Assessment Problems Medical Problems: (1) Chest pain Status: Acute FINAL IMPRESSION: 1. Chest pains no [place] ,CAD stable angina 2. The patient had a positive stress test for questionable reversible ischemia 4 weeks ago. 3. Hypertension. 4. Previous strokes. 5. Dementia. 6. History of gastrointestinal bleeding on anticoagulants. PLAN:discharge was on hold pt want cardiac cath today, changed her mind. medical treatment with [facility] spoke with cardiology d/c back to [place] today uti ,gram neg E Coli 100,000,started on vantin Problems: Plan Plan of Care Problems Medical Problems: (1) Chest pain Status: Acute Comment Review of Relevant I have reviewed the following items georges (where applicable) has been applied. Labs Microbiology 08/29/17 Urine Culture - Final, Complete 08/29/17 Urine Culture Result 1 (APARNA) - Final, Complete 08/29/17 Antimicrobic Susceptibility - Final, Complete Medications Current Medications Cefpodoxime Proxetil (Vantin) 100 mg BID PO Last administered on 08/31/17t 21: 29; Start 08/31/17 at 12:00 Ergocalciferol (Vitamin D2) 50,000 unit WEEKLY PO ; Start 09/06/17 at 09:00 Vitals/I & O Vital Sign - Last 24 Hours 08/31/17 08/31/17 08/31/17 08/31/17 11:00 15:00 17:43 19:00 Temp 98.3 98.2 98.3 98.3 98.2 98.3 Pulse 81 80 80 78 Resp 18 19 B/P (MAP) 97/50 (66) 95/46 (62) 95/46 105/53 (70) Pulse Ox 97 98 98 O2 Delivery Nasal Cannula Nasal Cannula Nasal Cannula O2 Flow Rate 3.0 3.0 3.0 08/31/17 08/31/17 09/01/17 09/01/17 19:53 23:00 03:00 07:40 Temp 98.3 98.3 98.0 98.3 98.3 98.0 Pulse 71 74 79 Resp 19 17 18 B/P (MAP) 113/53 (73) 118/48 (71) 128/60 (82) Pulse Ox 97 99 98 O2 Delivery Nasal Cannula Nasal Cannula Nasal Cannula Nasal Cannula O2 Flow Rate 3.0 3.0 3.0 3.0 DAISY AMBROSE MD Sep 01, 2017 10:20
[2017-09-01 11:05] VITALS: BP 121/58
[2017-09-01] MEDS ORDERED: MINERAL OIL/PETROLATUM,WHITE OPHTH OINT 3.5GM TUBE. OU PRN (12:30)
[2017-09-01] MEDS ORDERED: IOHEXOL 300 MG/ML 100ML VIAL. ONE (13:06)
[2017-09-01] MEDS ORDERED: LIDOCAINE 2% 20 ML VIAL. ONE (13:06)
[2017-09-01] MEDS ORDERED: NITROGLYCERIN 200 MCG/2 ML SYRINGE FOR CATH/VASC LAB. ONE (13:42)
[2017-09-01] MEDS ORDERED: MIDAZOLAM HCL/PF 2 MG/2 ML VIAL. ONE (13:42)
[2017-09-01] MEDS ORDERED: fentaNYL PF VIAL 100 MCG/2 ML VIAL ONE (13:42)
[2017-09-01] MEDS ORDERED: HEPARIN for IV BOLUS 10,000 UNIT/10 ML VIAL. ONE (13:42)
[2017-09-01] MEDS ORDERED: VERAPAMIL 5 MG/2 ML VIAL. ONE (13:42)
[2017-09-01] MEDS ORDERED: IOHEXOL 300 MG/ML 100ML VIAL. IART ONE (14:00)
[2017-09-01] MEDS ORDERED: HEPARIN for IV BOLUS 10,000 UNIT/10 ML VIAL. IART ONE (14:00)
[2017-09-01] MEDS ORDERED: MIDAZOLAM HCL/PF 2 MG/2 ML VIAL. IV ONE (14:00)
[2017-09-01] MEDS ORDERED: VERAPAMIL 5 MG/2 ML VIAL. IART ONE (14:00)
[2017-09-01] MEDS ORDERED: NITROGLYCERIN 200 MCG/2 ML SYRINGE FOR CATH/VASC LAB. IART ONE (14:00)
[2017-09-01] MEDS ORDERED: LIDOCAINE 2% 20 ML VIAL. IJ ONE (14:00)
[2017-09-01] MEDS ORDERED: fentaNYL PF VIAL 100 MCG/2 ML VIAL IV ONE (14:00)
[2017-09-01] MEDS ORDERED: CONTRAST GIVEN MC PRN (14:15)
[2017-09-01 14:23] VITALS: BP 134/68
[2017-09-01] MEDS: LISINOPRIL 5 MG TABLET. PO SCH (14:54)
[2017-09-01] MEDS: CEFPODOXIME PROXETIL 100 MG TABLET. PO SCH (14:54)
[2017-09-01] MEDS: ASPIRIN ENTERIC COATED 81 MG TABLET.DR. PO SCH (14:54)
[2017-09-01] MEDS: amLODIPine BESYLATE 2.5 MG TABLET PO SCH (14:54)
[2017-09-01] MEDS: CETIRIZINE HCL 10 MG TABLET. PO SCH (14:55)
[2017-09-01] MEDS: ISOSORBIDE MONONITRATE ER 30 MG TAB.ER.24H PO SCH (14:55)
[2017-09-01] MEDS: LEVOTHYROXINE 75 MCG TABLET PO SCH (14:55)
[2017-09-01] MEDS: POTASSIUM CHLORIDE 10 MEQ TABLET.ER. PO SCH ×2 (14:56→17:38)
[2017-09-01] MEDS: FERROUS SULFATE 325 MG TABLET. PO SCH ×2 (14:56→17:37)
[2017-09-01] MEDS: PANTOPRAZOLE 40 MG TABLET.DR. PO SCH (14:56)
[2017-09-01] MEDS: DULoxetine HCL 30 MG CAPSULE.DR PO SCH (14:56)
[2017-09-01] MEDS: DICLOFENAC SODIUM 1% TOPICAL GEL 100GM TUBE. TP SCH (14:58)
[2017-09-01 15:35] VITALS: BP 135/64
[2017-09-01 17:37] VITALS: BP 66/77
[2017-09-01] MEDS ORDERED: ISOS30TA4 PO (18:24)
--- NOTE | 2017-09-02 10:34 | CARD ---
APPROVED REPORT Procedure(s) performed: CORONARIES, LV, W INJECTION MODERATE SEDATION: 30 MIN HISTORY : The patient is a 81 year-old female with a history of . INDICATION The indication(s) include : positive stress test, unstable angina . PROCEDURE NARRATIVE The patient was brought electively to the cardiac catheterization lab. A timeout was performed confi rming the patient's name, date of , procedure, and site of procedure. All necessary personnel w ere wearing the appropriate protective equipment and radiation monitor devices. After explaining the risks and benefits of the procedure and alternatives, informed consent was obtained. (See nursing no merry for medications administered). The right wrist was sterilely prepped and draped in the usual fas hion. The right wrist was infiltrated with 1 mL of 2% lidocaine for subcutaneous anesthesia. A 6 Fr ench Terumo glide sheath was inserted into the right radial artery without difficulty. Right and lef t coronary angiography was performed using a 6Fr TIG 4.0 catheter. Left ventricular end diastolic pr essure was obtained with a pigtail catheter and pullback was performed after left ventriculography. All catheter exchanges and advancements were performed over a guidewire. At case completion the righ t radial sheath was removed and a Terumo radial band was applied with 13 ml of air. The patient tole rated the procedure well and there were no immediate complications. HEMODYNAMICS: LVEDP 18 mm Hg No gradient on LV to aortic pullback. CORONARY ANGIOGRAPHY: LM is a large caliber vessel with normal angiographic appearance. LAD is a large caliber calcifed vessel with a dual LAD system. There is heavy adventitial calcificati on without significant obstructive disease. LCx is a moderate caliber non-dominant vessel with normal angiographic appearance. OM1 is a small caliber vessel with normal angiographic appearance. RCA is a large caliber dominant calcified vessel with mild luminal irregularities of up to 30%. RPDA and RPL are moderate caliber vessels with mild luminal irregularities. Conclusion 1. Mild non-obstructive CAD. Recommendations Aggressive Medical Therapy
--- NOTE | 2017-09-04 10:02 | PDOC ---
Provider Note Provider Note Discharge summary dictated. #[id number] DAISY AMBROSE MD Sep 04, 2017 10:02
[2017-09-06] MEDS ORDERED: ERGOCALCIFEROL (VITAMIN D2) 50,000 UNIT CAPSULE. PO SCH (09:00)
== END 2017-09-01 19:56 | DRG 287 ==
LOC: ER 14:36 → 2 SOUTH 17:10
PROVIDERS: ADMIT Internal Medicine; ATTEND Internal Medicine
PROC: 4A023N7 Measurement of Cardiac Sampling and Pressure, Left Heart, Percutaneous Approach (ICD-10-PCS; principal; 2017-09-01)
PROC: B2111ZZ Fluoroscopy of Multiple Coronary Arteries using Low Osmolar Contrast (ICD-10-PCS; 2017-09-01)
PROC: B2151ZZ Fluoroscopy of Left Heart using Low Osmolar Contrast (ICD-10-PCS; 2017-09-01)
DX: I25.118 Atherosclerotic heart disease of native coronary artery with other forms of angina pectoris (principal); I13.0 Hypertensive heart and chronic kidney disease with heart failure and stage 1 through stage 4 chronic kidney disease, or unspecified chronic kidney disease; F03.90 Unspecified dementia, unspecified severity, without behavioral disturbance, psychotic disturbance, mood disturbance, and anxiety; I50.32 Chronic diastolic (congestive) heart failure; F22 Delusional disorders; E78.5 Hyperlipidemia, unspecified; F32.9 Major depressive disorder, single episode, unspecified; M19.90 Unspecified osteoarthritis, unspecified site; E78.00 Pure hypercholesterolemia, unspecified; N18.2 Chronic kidney disease, stage 2 (mild); I25.2 Old myocardial infarction; Z86.718 Personal history of other venous thrombosis and embolism; Z86.73 Personal history of transient ischemic attack (TIA), and cerebral infarction without residual deficits; Z88.8 Allergy status to other drugs, medicaments and biological substances
CPT/HCPCS: 36415; 51701; 71010; 80048; 80061; 80076; 80307; 81001; 82274; 82553; 82962; 83690; 83735; 83880; 84443; 84484; 85025; 85610; 87086; 87186; 87641; 93005; 93458; 99152; 99153; C1769; C1892; J1644; J2250; J3010; J3490; Q9967; 99285-25; G0479; J2001

== ENCOUNTER → 2018-05-22 | Outpatient (CLI) | payer MEDICARE, OTHER | END | disposition home or self-care (01) | LOC: RT 10:53 | DX: R41.3 Other amnesia (principal); I13.0 Hypertensive heart and chronic kidney disease with heart failure and stage 1 through stage 4 chronic kidney disease, or unspecified chronic kidney disease; I50.9 Heart failure, unspecified; N18.2 Chronic kidney disease, stage 2 (mild); E03.9 Hypothyroidism, unspecified; E78.5 Hyperlipidemia, unspecified; E78.00 Pure hypercholesterolemia, unspecified | CPT/HCPCS: 95816 ==

== ENCOUNTER → 2018-05-26 | Outpatient (CLI) | payer MEDICARE, OTHER | END | disposition home or self-care (01) | LOC: CT 10:54 | DX: M50.323 Other cervical disc degeneration at C6-C7 level (principal); E04.1 Nontoxic single thyroid nodule; M48.02 Spinal stenosis, cervical region; M25.78 Osteophyte, vertebrae; M12.88 Other specific arthropathies, not elsewhere classified, other specified site | CPT/HCPCS: 72125 ==

== ENCOUNTER 2018-06-22 16:43 | Emergency (ER) | payer MEDICARE, OTHER | END 2018-06-22 21:00 | disposition home or self-care (01) | LOC: ER 16:43 | DX: S09.90XA Unspecified injury of head, initial encounter (principal); E78.00 Pure hypercholesterolemia, unspecified; I10 Essential (primary) hypertension; F03.90 Unspecified dementia, unspecified severity, without behavioral disturbance, psychotic disturbance, mood disturbance, and anxiety; Z88.8 Allergy status to other drugs, medicaments and biological substances; W06.XXXA Fall from bed, initial encounter; Y93.89 Activity, other specified; Y99.8 Other external cause status; Y92.89 Other specified places as the place of occurrence of the external cause | CPT/HCPCS: 70450; 71045; 72125; 72170; 99284-25 ==

== ENCOUNTER 2018-08-20 17:24 | Emergency (ER) | payer MEDICARE, OTHER ==
[~2018-08-20] VITALS: Ht 165.1 cm; Wt 86.2 kg
[~2018-08-20 17:24] MED LIST changes: -AMLO10TA2 PO; +AMLO10TA6 PO; -AMLO2.5T PO; +AMLO2.5T3 PO; +FERR325T14 PO; +ISOS30TA4 PO; +MAGN400O7 PO; +POTA10TA12 PO; -POTASSIUM CHLO10 MEQ PO
[2018-08-20 17:25] VITALS: BP 161/72
[2018-08-20] MEDS ORDERED: IOHEXOL 240 MG/ML PO ONE (18:15)
--- NOTE | 2018-08-20 18:19 | PHYS DOC ---
Past Medical History Past Medical History: Arthritis, Dementia, Depression, High Cholesterol, Hypertension Additional Past Medical Histor: DVT LEFT LEG Past Surgical History: No Surgical History Additional Past Surgical Histo: unknown Alcohol Use: None Drug Use: None Adult General Chief Complaint Chief Complaint: GI PROBLEM HPI HPI Patient is a 82 year old female who presents with g-tube problem. Patient is a 82-year-old female who [facility] Her [facility]-tube apparently was accidentally pulled out at the [facility]. According to EMS, nursing staff there attempted multiple times to replace the tube but they were unsuccessful. On arrival to the ER, the patient is nonverbal which is apparently her baseline. The patient does answer no when asked if she has any pain or other complaints. Review of Systems Review of Systems No ROS is available from the patient as she is nonverbal All other systems were reviewed and found to be within normal limits, except as documented in this note. Current Medications Current Medications Current Medications Medications (Trade) Dose Ordered Sig/Rubén Start Time Stop Time Status Last Admin Dose Admin Info (CONTRAST GIVEN -- Rx MONITORING) 1 each PRN DAILY PRN 08/20/18 18:45 08/22/18 18:44 Iohexol (Omnipaque 240 Mg/ml) 50 ml 1X ONCE 08/20/18 18:30 08/20/18 18:31 DC 08/20/18 18:30 40 ML Allergies Allergies Allergies Coded Allergies Type Severity Reaction Last Updated Verified cortisone Allergy Intermediate 12/26/15 No warfarin Allergy Intermediate 12/26/15 No Physical Exam Physical Exam Constitutional: Well developed, well nourished, elderly female in no distress but nonverbal HENT: Normocephalic, atraumatic, bilateral external ears normal, oropharynx moist Neck: Normal range of motion Cardiovascular:Heart rate regular rhythm, no murmur Lungs & Thorax: Bilateral breath sounds clear to auscultation Abdomen: Bowel sounds normal, soft, no tenderness, no masses, stoma with a scant amount of blood present over the left abdomen. otherwise normal exam. Skin: Warm, dry, no erythema Extremities: No edema Neurologic: Alert and oriented X 3 Current Patient Data Vital Signs Vital Signs Date Time Temp Pulse Resp B/P (MAP) Pulse Ox O2 Delivery O2 Flow Rate FiO2 08/20/18 17:25 98.0 60 18 161/72 (101) 96 Room Air 98.0 EKG EKG [] Radiology/Procedures Radiology/Procedures Feeding tube with intraluminal placement. Course & Med Decision Making Course & Med Decision Making Pertinent Labs and Imaging studies reviewed. (See chart for details) Is evaluated shortly after arrival to the ER. She is here for an isolated problem with her G-tube. G-tube is easily replaced with identical replacement. No consultations. Postprocedure film with iodine inserted reveals intraluminal tube. [facility]. Dragon Disclaimer Dragon Disclaimer This electronic medical record was generated, in whole or in part, using a voice recognition dictation system. Departure Departure Referrals: ELIEZER CARRASQUILLO MD (PCP) ARGENTINA LANDIN DO Aug 20, 2018 18:19
[2018-08-20] MEDS ORDERED: IOHEXOL 240 MG/ML 50ML VIAL. PO ONE (18:30)
[2018-08-20] MEDS ORDERED: CONTRAST GIVEN. MC PRN (18:45)
--- NOTE | 2018-08-20 19:15 | RAD ---
2 views abdomen pelvis HISTORY: G-tube reinsertion Water-soluble contrast was administered and a supine and left decubitus views were obtained There is contrast seen in the stomach and proximal small bowel. There is no gross extravasation. There is no free air. IMPRESSION: G-tube appropriately positioned. No leak of contrast. Electronically signed by: Ross Alejandre III, MD (08/20/2018 7:12 PM) [id number]
== END 2018-08-20 19:25 | disposition home or self-care (01) ==
LOC: ER 17:24
DX: Z43.1 Encounter for attention to gastrostomy (principal); M19.90 Unspecified osteoarthritis, unspecified site; F32.9 Major depressive disorder, single episode, unspecified; E78.00 Pure hypercholesterolemia, unspecified; I10 Essential (primary) hypertension; Z86.718 Personal history of other venous thrombosis and embolism; Z88.8 Allergy status to other drugs, medicaments and biological substances
CPT/HCPCS: 43760; 74021; 99284; Q9966